=== PATIENT | female | born 1960 | race Caucasian/White ===

== ENCOUNTER 2017-11-14 12:45 | Outpatient (CLI) | payer BC ==
--- NOTE | 2017-11-14 14:52 | RAD ---
PA AND LATERAL CHEST: History: Dyspnea. FINDINGS: Comparison is made with exam of 11-13-13. FINDINGS: The heart size is normal. The lungs are well expanded without focal areas of consolidation, pneumotho rax, or pleural effusions. There are mild degenerative changes in the spine. IMPRESSION: Stable exam. No radiographic evidence of acute process. POS: [facility]
== END 2017-11-14 12:46 | disposition home or self-care (01) ==
LOC: RAD 12:45
PROVIDERS: ATTEND Internal Medicine Critical Care Medicine
DX: R06.00 Dyspnea, unspecified (principal)
CPT/HCPCS: 71046

== ENCOUNTER 2018-06-06 12:45 | Outpatient (CLI) | payer BC ==
--- NOTE | 2018-06-06 14:16 | RAD ---
PA AND LATERAL CHEST: Date: 06/06/18 INDICATION: History of dyspnea. COMPARISON: Prior exam dated 11/14/17. FINDINGS: COPD changes are stable. Vascular calcifications involving the aortic arch are similar appearing. Hea rt size is normal. There is mild spondylosis of the thoracic spine. IMPRESSION: Stable chronic lung changes. POS: [facility]
== END 2018-06-06 12:46 | disposition home or self-care (01) ==
LOC: RAD 12:45
PROVIDERS: ATTEND Internal Medicine Critical Care Medicine
DX: R06.00 Dyspnea, unspecified (principal)
CPT/HCPCS: 71046

== ENCOUNTER 2018-07-25 13:16 | Outpatient (CLI) | payer BC ==
--- NOTE | 2018-07-25 16:45 | CT ---
CT CHEST NONCONTRAST LOW DOSE PULMONARY LUNG SCAN: Date; 07/25/18 HISTORY: Lung cancer screening. C34.90. Lung nodule. Follow-up. COMPARISON: 11/18/13. FINDINGS: Lungs remain hyperinflated with scattered areas of parenchymal scarring. Compared to the prior study, the peripheral areas of opacity and bronchial opacification at the anterior lung bases have resolved or nearly resolved. No focal nodule is apparent within the lung parenchyma. At the right posterolate ral costophrenic angle, a wedge-shaped area of parenchymal opacity has the appearance of scarring and atelectasis. No pneumothorax or pleural fluid. Lack of contrast limits evaluation of the soft tissues. No bulky mediastinal adenopathy. Bilateral br east implants. IMPRESSION: 1. Lung-RADS Category 2 - Benign. Suggest routine follow-up. 2. COPD. POS: [facility]
== END 2018-07-25 13:17 | disposition home or self-care (01) ==
LOC: CT 13:16
PROVIDERS: ATTEND Internal Medicine Critical Care Medicine
DX: C34.90 Malignant neoplasm of unspecified part of unspecified bronchus or lung (principal); J44.9 Chronic obstructive pulmonary disease, unspecified
CPT/HCPCS: G0297

== ENCOUNTER 2019-10-03 09:28 | Outpatient (CLI) | payer BC ==
--- NOTE | 2019-10-03 10:25 | CT ---
CT of [id number] screening protocol: 10/03/2019 COMPARISON:07/25/2018 HISTORY:Nicotine dependence, current smoker with 30 pack-year smoking history TECHNIQUE: Serial axial CT imaging at1.25 from thethoracic inlet through upper abdomen without contra st. Coronal and sagittal reformatted imaging obtained. Findings:The lack of contrast limits assessment of the imaged viscera, vascular structures, and for l ymphadenopathy. Bilateral breast implants are present. Limited assessment of the chest for lymphadenopathy is unremar kable. Limited assessment of the upper abdomen is unremarkable. There is atherosclerotic calcification of the aortic arch and coronary arteries. No pleural, pericardial, or mediastinal fluid. The lungs are hyperinflated. Stable upper lobe centrilobular emphysematous change. Left upper lobe: No discrete pulmonary parenchymal mass lesion or nodule noted. Left lower lobe: Small ill-defined nodule noted on axial image 211 measuring approximately 4-5 mm, sl ightly more conspicuous than on the prior examination. Right upper lobe: Peripheral areas of pleural thickening noted within the right lung apex, unchanged when compared to the prior exam. No discrete/dominant pulmonary parenchymal mass lesion or nodule noted. Right middle lobe: Anterior inferior linear density noted medially consistent with scar. No discrete/ dominant pulmonary parenchymal mass lesion or nodule noted. Right lower lobe: Irregular nodular density on prior examination within the inferior lateral right lo wer lobe is no longer present. No discrete/dominant pulmonary parenchymal mass lesion or nodule is noted in within the right lower lobe. Review of the osseous structures demonstrates no worrisome lytic or blastic lesions. Impression:Lung RADS category 2-benign appearance or behavior. Continue annual screening with low-dos e chest CT in 12 months.
== END 2019-10-03 09:29 | disposition home or self-care (01) ==
LOC: CT 09:28
PROVIDERS: ATTEND Internal Medicine Critical Care Medicine
DX: Z12.2 Encounter for screening for malignant neoplasm of respiratory organs (principal); J44.9 Chronic obstructive pulmonary disease, unspecified; Z87.891 Personal history of nicotine dependence
CPT/HCPCS: G0297

== ENCOUNTER 2020-07-23 11:03 | Outpatient (CLI) | payer BC ==
--- NOTE | 2020-07-23 11:41 | CT ---
CT ABDOMEN AND PELVIS WITH IV CONTRAST 07/23/2020 CLINICAL INFORMATION: Weight loss. COMPARISON: None. Technique: Multiple contiguous axial CT images are obtained through the abdomen and pelvis with IV contrast. Cor onal reformatted images are provided. FINDINGS: Lower Chest: Partial visualization of bilateral breast prostheses. There is mild linear atelectasis v ersus scarring right middle lobe and lingula. Lung bases are otherwise clear without pulmonary nodule or mass is seen. Vessels: Vascular calcifications are seen in the abdominal aorta and involving the iliac arteries. Abdomen: Portal vein:Patent Gallbladder: Decompressed. Liver: There are several scattered subcentimeter too small to characterize hypodense lesions seen thr oughout each lobe of the liver some of which were present on partially visualized liver on noncontrast CT pulmonary lung scan in 2018, and findings are statistically likely related to hepatic cyst as opposed to cystic metastatic lesions. Spleen: within normal limits. Pancreas: within normal limits. Adrenals: within normal limits. Kidneys: within normal limits. Bowel: Normal caliber. Appendix: Not visualized, there are no secondary signs to suggest appendicitis. Peritoneum: No ascites or free air; no fluid collection. Mesentery and Retroperitoneum: No enlarged mesenteric or retroperitoneal lymph nodes. Abdominal Wall: within normal limits. Pelvis: Reproductive Organs: No pelvic masses. Small 1 cm hypodense cystic appearing structure seen right ova ry which may represent a small cyst. Bladder: Decompressed. Bones: No suspicious lytic or sclerotic osseous lesions. IMPRESSION: 1. No acute findings in the abdomen or pelvis. 2. Scattered subcentimeter too small to characterize hypodense lesions throughout each lobe the liver . Some these low-density areas were imaged on nonenhanced CT pulmonary lung scans on 10/03/2019 and 07/25/2018 and where visualized appear overall stable in size. Findings are statistically likely relat ed to multiple hepatic cysts as opposed to cystic metastatic lesions.
[2020-07-23] MEDS ORDERED: Iopamidol 370 76% 100 ML VIAL ONE (13:42)
== END 2020-07-23 11:04 | disposition home or self-care (01) ==
LOC: BICCT 11:03
PROVIDERS: ATTEND Family Medicine
DX: R63.4 Abnormal weight loss (principal); J98.4 Other disorders of lung; K76.89 Other specified diseases of liver
CPT/HCPCS: 74177; Q9967

== ENCOUNTER 2021-04-13 | Outpatient (CLI) | payer BC | END 2021-04-13 08:46 | disposition home or self-care (01) | DX: Z12.31 Encounter for screening mammogram for malignant neoplasm of breast (principal); Z98.82 Breast implant status; Z80.3 Family history of malignant neoplasm of breast | CPT/HCPCS: 77063; 77067 ==

== ENCOUNTER 2023-06-20 11:21 | Outpatient (CLI) | payer BC | END 2023-06-20 11:22 | disposition home or self-care (01) | LOC: BICCT 11:21 | PROVIDERS: ATTEND Family Medicine | DX: Z12.31 Encounter for screening mammogram for malignant neoplasm of breast (principal); Z80.3 Family history of malignant neoplasm of breast; Z98.82 Breast implant status | CPT/HCPCS: 71271; 77063; 77067 ==